=== PATIENT | female | born 1940 | race Caucasian/White ===

== ENCOUNTER → 2018-07-09 10:05 | Outpatient (CLI) | payer MEDICARE, OTHER, SELFPAY ==
--- NOTE | 2018-07-09 10:09 | BI_ITS ---
MAMMOGRAPHY - BILATERAL SCREENING REASON FOR EXAM: Female, 78 years old. Routine annual screening examination. PERTINENT HISTORY: Non-contributory. Remote right breast biopsy. TECHNIQUE: Digital bilateral breast sweetie (3D mammographic acquisition) in the CC and MLO projections. 2-D mediolateral oblique (MLO) and craniocaudad (CC) views of both breasts were obtained. CAD: Full Field Digital Mammography with Computer Added Detection was performed. COMPARISON: None. FINDINGS: Breast Composition: There are scattered areas of fibroglandular density. Focal linear calcifications are seen along the inferior slightly medial aspect of the right breast. The patient will be recalled for additional views including magnification spot views. There is a 7 mm x 7 mm well-defined nodule in the anterior upper lateral portion of the left breast. There is also evidence of a 6 mm nodule with a central fatty hilum in the anterior superior lateral aspect of the right breast. I suspect both of these nodules to be small lymph nodes. No other significant abnormalities are identified. BI/SCREENING MAMM (CAD), BILAT IMPRESSION: Microcalcifications in the slightly inferior medial portion of the right breast as described. The patient will be recalled for additional views including magnification spot views. Recall Side: Right Breast ASSESSMENT CATEGORY: BIRADS Category 0: Incomplete. Need additional imaging evaluation. A letter regarding these results will be sent to the patient by the facility within 30 days. Approximately 10% of breast cancers are not detected by mammography. A normal mammogram should not delay biopsy of a clinically suspicious abnormality. [id number] Electronically Signed: Parviz Figueroa MD at 11:07 EDT Tel [phone], Service support ,
== END ==
PROVIDERS: Family Provider Nurse Practitioner; PCP Nurse Practitioner; Visit Provider Nurse Practitioner
DX: Z12.31 Encounter for screening mammogram for malignant neoplasm of breast (principal)
CPT/HCPCS: 77063; 77067

== ENCOUNTER → 2018-07-12 08:51 | Outpatient (CLI) | payer MEDICARE, OTHER, SELFPAY ==
--- NOTE | 2018-07-12 08:54 | BI_ITS ---
MAMMOGRAPHY - UNILATERAL DIAGNOSTIC: RIGHT BREAST REASON FOR EXAM: Female, 78 years old. Abnormal mammogram. PERTINENT HISTORY: Non-contributory. TECHNIQUE: Compression magnification spot views of the right breast were obtained in the mediolateral oblique and craniocaudad projections. CAD: Full Field Digital Mammography with Computer Added Detection was performed. COMPARISON: Comparison is made with prior mammogram dated July 09, 2018. FINDINGS: Breast Composition: There are scattered areas of fibroglandular density. The calcifications are once again seen. A biopsy is recommended for further evaluation. No other significant abnormalities are identified. BI/DIAG MAMM W/CAD, UNILAT IMPRESSION: The calcifications are once again seen in the anterior slightly medial aspect of the right breast. Correlation with biopsy is recommended. ASSESSMENT CATEGORY: BIRADS Category 4: Suspicious - Biopsy Should Be Considered. A letter regarding these results will be sent to the patient by the facility within 30 days. Approximately 10% of breast cancers are not detected by mammography. A normal mammogram should not delay biopsy of a clinically suspicious abnormality. Electronically Signed: Parviz Figueroa MD at 11:24 EDT Tel [phone], Service support ,
== END ==
PROVIDERS: Family Provider Nurse Practitioner; PCP Nurse Practitioner; Visit Provider Nurse Practitioner
DX: R92.0 Mammographic microcalcification found on diagnostic imaging of breast (principal)
CPT/HCPCS: 77065

== ENCOUNTER → 2018-08-05 11:06 | Outpatient (CLI) | payer MEDICARE, OTHER, SELFPAY ==
--- NOTE | 2018-08-05 | IMM_PTH ---
PATIENT: JOCELINE LANGLEY LOC: [facility] U#:[id number] AGE/SX: 85/F ROOM: RE08/05/[address]: Dr. Susu Watt MD : 1940 BED: DIS: SPEC #: [id number] RECD: 08/06/18 13:54 STATUS: TRAVIS REQ #: [id number] FELISHA: 08/05/18 00:[address]: Susu Watt DEPT: IMMUNOHISTOCHEMISTRY RECD BY: Yennifer Beauchamp ENTERED: 08/06/18 13:56 SP TYPE: IMMUNO OTHR DR: TULIO Andrew Tissues: Right breast, NOS Procedures: Calponin-1(initial) CALPONIN-1 (add) P40 (add) PHYSICIAN & INSTITUTION [place] [id number] SPECIMEN INFORMATION: Tissue Source: Right breast, stereotactic needle core biopsy Clinical Info: Abnormal calcification right breast Specimen Number: [id number] #1 & 3 CPT code: 76809, 87140 x3 METHODOLOGY: Deparaffinized sections of prefer/formalin-fixed tissue or PAP/DQ stained slides are incubated with monoclonal/polyclonal antibodies/oligonucleotide probes. Localization is made via biotin free immunoperoxidase method. Appropriate controls are performed and reacted as expected. Results on target cell population are indicated in the following table: RESULTS: ANTIBODY / CLONE RESULT Block 1 P40 (BC28) positive Calponin-1 (KU351W) positive Block 3 P40 (BC28) positive Calponin-1 (PL784E) positive These tests were developed and their performance characteristics determined by [facility]. They may not have been cleared or approved by the U.S. Food and Drug Administration. The FDA has determined that such clearance or approval is not necessary. INTERPRETATION: Right breast, stereotactic needle core biopsy: Negative for malignancy. PEYTON:rangel 08/07/18
--- NOTE | 2018-08-05 11:35 | BRBX_PTH ---
PATIENT: JOCELINE LANGLEY LOC: [facility] U#:[id number] AGE/SX: 85/F ROOM: RE08/05/[address]: Dr. 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 Focal microcalcifications. Negative for malignancy. PEYTON:rangel 08/06/18 COMMENT Immunohistochemistry ([id number]) supports the above diagnosis. Correlation with clinical, radiologic findings and appropriate follow up are necessary. Case has been reviewed in consultation with Dr. Mariee who concurs with the above diagnosis. IDC:AM MICROSCOPIC DESCRIPTION Slides are reviewed. GROSS DESCRIPTION Received is one container labeled with the patient's name and not further designated. The specimen consists of multiple elongated fragments of escobar-yellow fibroadipose tissue that in aggregate measure 6 x 3 x 0.3 cm. The entire specimen is submitted in three cassettes. / PEYTON:rangel 08/05/18 TC:5 [facility]: [id number]
--- NOTE | 2018-08-05 12:14 | PCM.OPRPT ---
Report of Operation Date of Procedure: 08/05/18 Pre-Operative Diagnosis: abnormal calcifications on right breast mammograms Post-Operative Diagnosis: same Surgery/Procedure Performed:: right stereotactic breast biopsy Description of Surgical Findings:: abnormal calcifications in lower inner aspect of right breast Type of Anesthesia:: Local - 1% xylocaine Anesthesiologist: none Specimen's removed: right breast tissue Estimated Blood Loss (mL): < 1 Fluids Replaced: none Description of Procedure: After informed consent was given, the patient was brought into the breast biopsy suite. Appropriate time out protocol was followed. She was then placed in the prone position on the stereotactic biopsy table. The patient?s right breast was then placed at the opening at the head of the table. A special tax auditor compression mammogram was then obtained in the lateral view. The suspicious radiological lesion was then identified. Stereo pictures of the lesion were then taken for XYZ coordinates. The Mammotome biopsy stylus was then positioned where it would be entering into the patient?s breast. The skin at this site was then cleansed with a surgical skin preparation. The skin and subcutaneous tissues at this site were then infiltrated with 1% xylocaine. A small skin incision was made with an 11 blade scalpel. The biopsy stylus was then positioned into the patient?s breast at the proper coordinates of depth. Using the Mammotome vacuum-assist device, several core samples of breast tissue were obtained. A specimen mammogram was the obtained and revealed that the abnormal calcifications were within the specimen. A hemostatic marker clip was then placed into the biopsy cavity and a special tax auditor film revealed that it was properly deployed. The patient was then placed in the supine position and pressure was applied to the breast until no active bleeding was noted. Steristrips were applied to reapproximate the skin. A unilateral mammogram in the CC and MLO view were then taken which revealed that the marker clip was in the same area as the previous suspicious lesion. The patient tolerated the procedure well and was discharged from the breast biopsy suite in good condition. - Complications none noted
--- NOTE | 2018-08-05 12:17 | OP.PCM_ITS ---
Report of Operation Date of Procedure: 08/05/18 Pre-Operative Diagnosis: abnormal calcifications on right breast mammograms Post-Operative Diagnosis: same Surgery/Procedure Performed:: right stereotactic breast biopsy Description of Surgical Findings:: abnormal calcifications in lower inner aspect of right breast Type of Anesthesia:: Local - 1% xylocaine Anesthesiologist: none Specimen's removed: right breast tissue Estimated Blood Loss (mL): < 1 Fluids Replaced: none Description of Procedure: After informed consent was given, the patient was brought into the breast biopsy suite. Appropriate time out protocol was followed. She was then placed in the prone position on the stereotactic biopsy table. The patient?s right breast was then placed at the opening at the head of the table. A electronic imager compression mammogram was then obtained in the lateral view. The suspicious radiological lesion was then identified. Stereo pictures of the lesion were then taken for XYZ coordinates. The Mammotome biopsy stylus was then positioned where it would be entering into the patient?s breast. The skin at this site was then cleansed with a surgical skin preparation. The skin and subcutaneous tissues at this site were then infiltrated with 1% xylocaine. A small skin incision was made with an 11 blade scalpel. The biopsy stylus was then positioned into the patient?s breast at the proper coordinates of depth. Using the Mammotome vacuum-assist device, several core samples of breast tissue were obtained. A specimen mammogram was the obtained and revealed that the abnormal calcifications were within the specimen. A hemostatic marker clip was then placed into the biopsy cavity and a electronic imager film revealed that it was properly deployed. The patient was then placed in the supine position and pressure was applied to the breast until no active bleeding was noted. Steristrips were applied to reapproximate the skin. A unilateral mammogram in the CC and MLO view were then taken which revealed that the marker clip was in the same area as the previous suspicious lesion. The patient tolerated the procedure well and was discharged from the breast biopsy suite in good condition. - Complications none noted
== END ==
PROVIDERS: Family Provider Nurse Practitioner; PCP Nurse Practitioner; Referring Provider Surgery; Visit Provider Surgery
DX: N60.21 Fibroadenosis of right breast (principal); R92.8 Other abnormal and inconclusive findings on diagnostic imaging of breast
CPT/HCPCS: 19081; 88305; 88341; 88342; J7050; A4648

== ENCOUNTER → 2018-10-23 12:07 | Outpatient (CLI) | payer MEDICARE, OTHER, SELFPAY ==
--- NOTE | 2018-10-23 12:29 | RAD_ITS ---
STUDY: X-RAY CHEST REASON FOR EXAM: Female, 78 years old. Wheezing TECHNIQUE: PA and lateral views of the chest. COMPARISON: 07/12/2011 FINDINGS: The lungs are clear and expanded. There is no demonstrated pleural abnormality. Normal size heart. Normal mediastinum and karen. Normal visualized pulmonary arteries. Normal visualized aortic arch and descending thoracic aorta. Normal visualized thoracic spine. Normal visualized ribs, clavicles, and shoulders. There is no demonstrated abnormality of the visualized soft tissue structures of the upper abdomen. RAD/Chest PA and Lateral IMPRESSION: No acute pulmonary process Electronically Signed: Prasad Acosta MD at 12:08 EST , Service support ,
== END ==
PROVIDERS: Family Provider Nurse Practitioner; PCP Nurse Practitioner; Referring Provider Nurse Practitioner; Visit Provider Nurse Practitioner
DX: R06.2 Wheezing (principal)
CPT/HCPCS: 71046

== ENCOUNTER 2020-11-18 14:34 | Outpatient (RCR) | payer MEDICARE, OTHER, SELFPAY | END 2020-11-18 23:59 | LOC: IMMUN 14:34 | PROVIDERS: PCP Nurse Practitioner; Visit Provider Family Medicine | DX: Z23 Encounter for immunization (principal) | CPT/HCPCS: 0011A; 0012A; 91301 ==

== ENCOUNTER → 2023-06-28 | Outpatient (CLI) | payer MEDICARE, OTHER, SELFPAY ==
--- NOTE | 2023-06-28 12:43 | CDU_ITS ---
Reason For Study: Carotid bruit Rt. Velocities/BP Lt. Velocities/BP Prox CCA 55.1/11.6 cm/sec. Prox CCA 63.9/13.3 cm/sec. Mid CCA 56/15.4 cm/sec. Mid CCA 45.6/13.3 cm/sec. Dist CCA 57/15.4 cm/sec. Dist CCA 46.5/12.5 cm/sec. Prox ICA 44.7/14.5 cm/sec. Prox ICA 45.6/13.3 cm/sec. Mid ICA 50.4/16.3 cm/sec. Mid ICA 66.6/23.8 cm/sec. Dist ICA 57.9/18.2 cm/sec. Dist ICA 59.6/20.3 cm/sec. Rt. ICA/CCA = 1.03. Lt. ICA/CCA = 1.43. Prox ECA 56/6.9 cm/sec. Prox ECA 56.1/9 cm/sec. Rt. Vert. 26.9/4.4 cm/sec. Lt. Vert. 50.9/12.5 cm/sec. Right Extracranial There is intimal thickening but no significant atherosclerotic plaque noted in the right common carotid artery. There is homogeneous, smooth atherosclerotic plaque noted in the right internal carotid artery. There is intimal thickening but no significant atherosclerotic plaque noted in the right external carotid artery. Antegrade flow is noted in the right vertebral artery. Left Extracranial There is intimal thickening but no significant atherosclerotic plaque noted in the left common carotid artery. There is intimal thickening but no significant atherosclerotic plaque noted in the left internal carotid artery. There is intimal thickening but no significant atherosclerotic plaque noted in the left external carotid artery. Antegrade flow is noted in the left vertebral artery. Procedure This is a Carotid Duplex examination using B-mode, color flow and specral Doppler. Carotid Duplex [id number]. Exam performed in department. VL/Carotid Duplex Ultrasound Interpretation Summary Mild (<50%) stenosis right extracranial internal carotid. Normal left extracranial internal carotid. Patent and antegrade vertebrals bilaterally. Ordering Physician: Kellen Ruiz Referring Physician: Kellen Ruiz Performed By: Juana Hudson RVT
== END | disposition home or self-care (01) ==
LOC: CVS 12:42
PROVIDERS: PCP Nurse Practitioner Family; Referring Provider Nurse Practitioner Family; Visit Provider Nurse Practitioner Family
DX: R09.89 Other specified symptoms and signs involving the circulatory and respiratory systems (principal)
CPT/HCPCS: 93880

== ENCOUNTER → 2025-08-04 | Outpatient (CLI) | payer MEDICARE, OTHER, SELFPAY ==
--- NOTE | 2025-08-04 15:26 | CT_ITS ---
PROCEDURE: CTA HEAD AND NECK W/ CONTRAST 08/04/2025 REASON FOR EXAM: OTHER SPECIFIED SYMPTOMS AND SIGNS INVOLVING THE CIRCULATORY AND Pain along the left side of the neck. Hypertension. TECHNIQUE: Procedure Code: [id number].HDNCK Modality: CT Procedure: CTA HEAD AND NECK W/ CONTRAST Multiplanar Sagittal and Coronal images were obtained. 3D post processing was performed CONTRAST: Isovue 370 VOLUME: 75 mL One or more dose reduction techniques were used (e.g., Automated exposure control, adjustment of the mA and/or kV according to patient size, use of iterative reconstruction technique). RADIATION DOSE SUMMARY: CTDlvol: 27.6 mGy DLP: 1269.69 mGycm COMPARISON: None FINDINGS: Aortic Arch: Normal size and branching pattern. Mild atherosclerotic plaque. Brachiocephalic and Subclavians: Unremarkable RIGHT Carotid: Right CCA: Unremarkable. Right ICA: Minimal plaque at the origin of the right internal carotid artery. Maximum stenosis (NASCET): <20% % Right ECA: Unremarkable. LEFT Carotid: Left CCA: Unremarkable. Left ICA: Unremarkable. Maximum stenosis (NASCET): 0 % Left ECA: Unremarkable. Vertebrals: Dominant left vertebral artery. RIGHT Vertebral: Unremarkable. LEFT Vertebral: Unremarkable. Anatomy: [place] anatomy is normal. Aneurysm or avm: No intracranial aneurysms or large vascular malformations are identified. Anterior cerebral arteries: Unremarkable: Middle cerebral arteries: Unremarkable. Basilar artery: Unremarkable. Posterior cerebral arteries: Unremarkable. Other major branches of the posterior circulation: Unremarkable. Major venous structures: Unremarkable. Other findings: Neck: Lungs: Bones: CT/CTA Head AND Neck W/ Contrast IMPRESSION: Minimal plaque at the origin of the right internal carotid artery causing minim al stenosis. Minimal atherosclerotic plaque formation at the origin of the right internal ca rotid artery. Unenhanced images of the brain were obtained. 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 Reading Location: [facility]
== END | disposition home or self-care (01) ==
LOC: CT 15:24
PROVIDERS: PCP Nurse Practitioner Family; Referring Provider Nurse Practitioner Family; Visit Provider Nurse Practitioner Family
DX: R09.89 Other specified symptoms and signs involving the circulatory and respiratory systems (principal)
CPT/HCPCS: 70496; 70498; Q9967